=== PATIENT | male | born 2000 | race Asian ===

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

== ENCOUNTER 2022-09-18 09:26 | Emergency (ER) | payer BC ==
[2022-09-18] MEDS ORDERED: DEXAMETHASONE SOD PHOS INJ 4 MG/ML SDV ONE (10:00)
[2022-09-18] MEDS ORDERED: DEXAMETHASONE SOD PHOS INJ 4 MG/ML SDV IM ONE (10:00)
[2022-09-18] MEDS ORDERED: CYCLOBENZAPRINE HCL 10 MG TAB PO ONE (10:00)
[2022-09-18] MEDS ORDERED: CYCLOBENZAPRINE HCL 10 MG TAB ONE (10:00)
[2022-09-18] MEDS ORDERED: HYDROCODONE/APAP 5MG-325MG TAB ONE (10:00)
[2022-09-18] MEDS ORDERED: HYDROCODONE/APAP 5MG-325MG TAB PO ONE (10:00)
[2022-09-18] MEDS ORDERED: CYCLOBENZAPRINE5 MG PO (10:29)
== END 2022-09-18 10:37 | disposition home or self-care (01) ==
LOC: FSED 09:35
DX: M54.2 Cervicalgia (principal); M79.18 Myalgia, other site; F17.210 Nicotine dependence, cigarettes, uncomplicated
CPT/HCPCS: 99282; J1100